=== PATIENT | female | born 1985 | race Caucasian/White ===

== ENCOUNTER 2020-03-01 12:59 | Outpatient (CLI) | payer BC, OTHER ==
[~2020-03-01 12:59] MED LIST: ALBU8.5H8 INH; B CO1TAB14 PO; CHOL10003 PO; OMEGA 3; OMEGA 3 PO; POLY17PO5 PO
[2020-03-01 13:44] LABS: BASOPHILS # (AUTO) 0.06 x10^3/uL (0-0.1); BASOPHILS % (AUTO) 1 % (0-1); EOSINOPHILS # (AUTO) 0.16 x10^3/uL (0-0.4); EOSINOPHILS % (AUTO) 2 % (1-7); LYMPHOCYTES # (AUTO) 3.52 x10^3/uL (1-3.4); LYMPHOCYTES % (AUTO) 36 % (22-44); MD NO; MEAN CORPUSCULAR HEMOGLOBIN 30.6 pg (27.0-34.8); MEAN CORPUSCULAR HGB CONC 33.2 g/dL (32.4-35.8); MEAN PLATELET VOLUME 7.9 fL (7.4-10.4); MONOCYTES # (AUTO) 0.47 x10^3/uL (0.2-0.8); MONOCYTES % (AUTO) 5 % (2-9); NEUTROPHILS # (AUTO) 5.51 x10^3/uL (1.8-6.8); NEUTROPHILS % (AUTO) 57 % (42-75); PLATELET COUNT 252 x10^3/uL (130-400); RED BLOOD COUNT 4.73 x10^6/uL (3.82-5.3); RED CELL DISTRIBUTION WIDTH 13.2 % (9.6-15.2)
[2020-03-01 13:44] LABS: HCG UR SG 1.009 (1.003-1.030); MICROSCOPIC NOT IND
== END 2020-03-01 23:59 | disposition home or self-care (01) ==
LOC: STAR 12:59
PROVIDERS: ATTEND Obstetrics & Gynecology
DX: Z01.818 Encounter for other preprocedural examination (principal); Z11.59 Encounter for screening for other viral diseases; N94.10 Unspecified dyspareunia; N80.9 Endometriosis, unspecified; Z88.1 Allergy status to other antibiotic agents
CPT/HCPCS: 36415; 81003; 81025; 85025; 87635

== ENCOUNTER 2020-03-05 06:55 | Day surgery (SDC) | payer BC, OTHER ==
[~2020-03-05] VITALS: Ht 172.7 cm; Wt 81.5 kg
[2020-03-05] MEDS ORDERED: OxyconTIN ER 10 MG TAB.ER PO STA (07:10)
[2020-03-05] MEDS ORDERED: ACETAMINOPHEN 500 MG TABLET PO STA (07:10)
[2020-03-05] MEDS ORDERED: CHLORHEXIDINE 15 ML UDC MM STA (07:11)
[2020-03-05] MEDS ORDERED: LACTATED RINGERS 1,000 ML IV SCH (07:11)
[2020-03-05 07:20] VITALS: BP 109/72
[2020-03-05 07:37] LABS: HCG UR SG 1.023 (1.003-1.030)
[2020-03-05] MEDS ORDERED: MIDAZOLAM 1 MG/ML, 2ML ONE (07:54)
[2020-03-05] MEDS ORDERED: FENTANYL PF 250 MCG/5ML ONE (07:54)
[2020-03-05] MEDS ORDERED: DEXAMETHASONE 4 MG/ML, 1ML ONE (08:02)
[2020-03-05] MEDS ORDERED: ROCURONIUM 10MG/ML,5ML ONE (08:02)
[2020-03-05] MEDS ORDERED: ONDANSETRON 2MG/ML, 2ML ONE (08:02)
[2020-03-05] MEDS ORDERED: PROPOFOL 10 MG/ML, 20ML ONE (08:02)
[2020-03-05] MEDS ORDERED: NEOSTIGMINE 1 MG/ML, 10ML ONE (08:02)
[2020-03-05] MEDS ORDERED: CEFAZOLIN 1,000 MG ONE (08:02)
[2020-03-05] MEDS ORDERED: GLYCOPYRROLATE 0.2MG/1ML, 5ML ONE (08:02)
[2020-03-05] MEDS ORDERED: BUPIVACAINE/PF-EPI 0.5% 1:200K ONE (08:31)
[2020-03-05] MEDS ORDERED: METHYLENE BLUE 10 MG/ML 10ML ONE (08:31)
[2020-03-05] MEDS ORDERED: ENOXAPARIN 30 MG/0.3 ML SQ STA (08:33)
[2020-03-05] MEDS ORDERED: hydrALAzine 20 MG/ML, 1ML IV PRN (09:00)
[2020-03-05] MEDS ORDERED: HYDROmorphone 1 MG/ML, 1ML INJ IVPush PRN (09:00)
[2020-03-05] MEDS ORDERED: LABETALOL 5MG/ML, 20ML IV PRN (09:00)
[2020-03-05] MEDS ORDERED: morphine SULFATE 10 MG/ML, 1ML IVPush PRN (09:00)
[2020-03-05] MEDS ORDERED: OXYcodone 5 MG/5 ML ORAL.SOL UDC PO PRN (09:00)
[2020-03-05] MEDS ORDERED: FENTANYL PF 100 MCG/2ML IV PRN (09:00)
[2020-03-05] MEDS ORDERED: MEPERIDINE/PF 25MG/0.5ML IVPush PRN (09:00)
[2020-03-05] MEDS ORDERED: HALOPERIDOL 5 MG/ML IV PRN (09:00)
[2020-03-05] MEDS ORDERED: PROMETHAZINE 25 MG/ML, 1ML IVPush PRN (09:00)
[2020-03-05] MEDS ORDERED: ALBUTEROL HFA 90 MCG/SPRAY ONE (09:58)
[2020-03-05] MEDS ORDERED: ALBUTEROL HFA 90 MCG/SPRAY INH PRN (10:00)
== END 2020-03-05 12:15 | disposition home or self-care (01) ==
LOC: OUT 06:55
PROVIDERS: ATTEND Obstetrics & Gynecology
DX: N94.6 Dysmenorrhea, unspecified (principal); R10.2 Pelvic and perineal pain; N94.10 Unspecified dyspareunia; G43.909 Migraine, unspecified, not intractable, without status migrainosus; D68.51 Activated protein C resistance; Z88.2 Allergy status to sulfonamides; Z88.1 Allergy status to other antibiotic agents; Z80.0 Family history of malignant neoplasm of digestive organs; Z79.899 Other long term (current) drug therapy; Z72.89 Other problems related to lifestyle; Z98.890 Other specified postprocedural states
CPT/HCPCS: 58350; 58660; 81025; J0690; J1100; J1650; J2250; J2405; J2704; J2710; J3010; J7120; Q9968; 36415; 87635